=== PATIENT | female | born 1980 | race Caucasian/White ===

== ENCOUNTER 2017-08-06 07:15 | Observation (INO) | payer OTHER ==
[2017-08-06] VITALS (7 sets, daily range): BP systolic 107–128; BP diastolic 63–82
[~2017-08-06] VITALS: Ht 167.6 cm; Wt 81.6 kg
[~2017-08-06 07:15] MED LIST: BUPIVACAINE-EPI 0.25%-1:200000 MPF 30 ML VIAL. ONE; CLINDAMYCIN 900MG PREMIX 50 ML IV PRN; HYDROmorphone 2 MG/ML VIAL IV PRN; IV RINGERS,LACTATED 1000ML 1,000 ML IV SCH; LIDOCAINE 1% PF 2 ML VIAL. ID PRN; LIDOCAINE 1%/EPI 1:100,000 20 ML VIAL. ONE; MORPHINE SULFATE 4 MG/ML DISP.SYRIN. IV PRN; ONDANSETRON PF 4 MG/2 ML VIAL. IV PRN; PROCHLORPERAZINE 10 MG/2 ML VIAL. IV PRN; SURGICEL HEMOSTAT 4X8 EACH. ONE; fentaNYL PF VIAL 100 MCG/2 ML VIAL IV PRN
[2017-08-06] MEDS ORDERED: BUPR100T7 PO (08:26)
[2017-08-06 08:27] LABS: BASO % 1 % (0-3); EOS % 1 % (0-3); HEMATOCRIT 41.5 % (36.0-47.0); HEMOGLOBIN 13.8 g/dL (12.0-15.5); LYMPH % 24 % (24-48); MEAN CORPUSCULAR HEMOGLOBIN 29 pg (25-35); MEAN CORPUSCULAR HGB CONC 33 g/dL (31-37); MEAN CORPUSCULAR VOLUME 87 fL (79-100); MONO % 6 % (0-9); NEUT % 68 % (31-73); PLATELET COUNT 303 x10^3/uL (140-400); RED BLOOD COUNT 4.76 x10^6/uL (3.50-5.40); WHITE BLOOD COUNT 8.1 x10^3/uL (4.0-11.0)
[2017-08-06] MEDS ORDERED: IBUP-1027 PO (08:27)
[2017-08-06] MEDS ORDERED: DIPH25CA58 PO (08:27)
[2017-08-06] MEDS ORDERED: PROPOFOL 20 ML IV ONE (08:52)
[2017-08-06] MEDS ORDERED: LIDOCAINE 2% PF Vial for OR 5 ML VIAL. ONE (08:52)
[2017-08-06] MEDS ORDERED: fentaNYL PF VIAL 100 MCG/2 ML VIAL ONE (08:53)
[2017-08-06 09:30] LABS: NEG OBC UR NEG; POS OBC UR POS
[2017-08-06] MEDS ORDERED: DESFLURANE 61 TO 120 MINUTES IH ONE (10:49)
[2017-08-06] MEDS ORDERED: DEXAMETHASONE SOD PHOS 20 MG/5 ML VIAL. ONE (10:49)
[2017-08-06] MEDS ORDERED: ONDANSETRON PF 4 MG/2 ML VIAL. ONE (11:00)
[2017-08-06] MEDS ORDERED: GLYCOPYRROLATE 1 MG/5 ML VIAL. ONE (11:01)
[2017-08-06] MEDS ORDERED: FAMOTIDINE 20 MG/2 ML VIAL ONE (12:01)
[2017-08-06] MEDS ORDERED: KETOROLAC 30 MG/ML INJ FOR OR. INJ ONE (12:12)
--- NOTE | 2017-08-06 12:32 | PDOC ---
BRIEF OPERATIVE NOTE Pre-Op Diagnosis 1. Fibroids 2. Menorrhagia 3. Dysmenorrhea Post-Op Diagnosis SAme Procedure Performed TL[facility] via [facility] [place] Surgeon Dr. Holliday Anesthesia Type: General Blood Loss 100 ml Specimens Obtained cervix, uterus, stepan. fallopian tubes Findings fibroid uterus, fibroid in Left broad ligament; nml fallopian tubes stepan, nml ovaries stepan. Complications none TIMI HOLLIDAY Jr, MD Aug 06, 2017 12:32
[2017-08-06] MEDS ORDERED: PROCHLORPERAZINE 10 MG/2 ML VIAL. IV PRN (12:45)
[2017-08-06] MEDS ORDERED: CALCIUM CARBONATE 500 MG TAB.CHEW PO PRN (12:45)
[2017-08-06] MEDS ORDERED: SIMETHICONE 80 MG TAB.CHEW PO PRN (12:45)
[2017-08-06] MEDS ORDERED: KETOROLAC 30 MG/ML INJ. IV PRN (12:45)
[2017-08-06] MEDS ORDERED: ZOLPIDEM 5 MG TABLET. PO PRN (12:45)
[2017-08-06] MEDS ORDERED: ONDANSETRON PF 4 MG/2 ML VIAL. IV PRN (12:45)
[2017-08-06] MEDS ORDERED: DEXTROSE 50% 25 GM / 50ML DISP.SYRIN. IV PRN (12:45)
[2017-08-06] MEDS ORDERED: diphenhydrAMINE HCL 25 MG CAPSULE PO PRN (12:45)
[2017-08-06] MEDS ORDERED: 0.9 % SODIUM CHLORIDE 10 ML DISP.SYRIN. IV PRN (12:45)
[2017-08-06] MEDS ORDERED: diphenhydrAMINE 50 MG/ML VIAL IV PRN (12:45)
[2017-08-06] MEDS: fentaNYL PF VIAL 100 MCG/2 ML VIAL IV PRN ×2 (13:03→13:10)
--- NOTE | 2017-08-06 14:11 | OP ---
DATE OF SURGERY: 08/06/2017 PREOPERATIVE DIAGNOSES: 1. Fibroids. 2. Menorrhagia. 3. Dysmenorrhea. POSTOPERATIVE DIAGNOSES: 1. Fibroids. 2. Menorrhagia. 3. Dysmenorrhea. PROCEDURE PERFORMED: TLH via da [facility]ilash robot. SURGEON: Timi Holliday MD. ANESTHESIA: GETA. ESTIMATED BLOOD LOSS: 100 mL. COMPLICATIONS: None. FINDINGS: Fibroid uterus. Fibroid, left broad ligament. Normal fallopian tubes bilaterally and normal ovaries bilaterally. SUMMARY: A 37-year-old female with fibroid uterus, menorrhagia, dysmenorrhea, required hysterectomy. She was counseled on risks, benefits and expectations of TLH via da Abhilash robot and voiced clear understanding to proceed. DESCRIPTION OF PROCEDURE: The patient was taken to surgery suite and placed in dorsal lithotomy position. She was prepped with Betadine solution for vaginal prep and ChloraPrep for abdominal prep. After adequate anesthesia, a weighted speculum and curved Jane placed vaginally. Anterior lip of cervix grasped with a single tooth tenaculum. The Kim uterine manipulator was then placed. The single tooth tenaculum and weighted speculum and curved Jane were removed. Attention was now placed on abdomen. Small transverse skin incision was made just below the umbilicus with a scalpel. The Veress needle was then placed through the infraumbilical incision site. The abdomen was allowed to insufflate up to 1-1/2 liters of CO2 gas. The Veress needle was then removed. The 8 mm camera trocar was then placed. The camera was then placed. The uterus was visualized, enlarged with fibroids. There was a 2 cm fibroid in the left broad ligament. The fallopian tubes and ovaries appeared normal bilaterally. Incision was made in the left and right lower quadrant with a scalpel, in which 8 mm trocars were placed. An accessory port was placed in the left upper quadrant, at which, a scalpel was used to make an incision. A 5 mm trocar was placed. The robot was then docked in normal fashion. I then proceeded to the console. With the aid of fenestrated bipolar cautery and vessel sealer, the right round ligament was coagulated and dissected. The right fallopian tube was dissected away from the pelvic sidewall using the vessel sealer. The right round ligament was then coagulated and dissected down to and including the right uterine artery. A bladder flap was created using the vessel sealer and blunt dissection. Same process took place for the left adnexa, which also included removal of the fibroid on the left ligament. Colpotomy was performed with the spatula at the level of the vaginal ring. The cervix, uterus, bilateral fallopian tubes as well as the fibroid on the left broad ligament were removed. The vaginal cuff was reapproximated using V-Loc suture in a running fashion. Suction irrigation was utilized to verify good hemostasis. Both ureters were visualized and functioning well. The trocars were then removed under direct visualization. The abdomen was allowed to deflate as much as possible, along with mechanical manipulation. The four skin incisions were reapproximated using 4-0 Vicryl suture in subcuticular manner. 0.25% Marcaine with epinephrine was injected at each incision site. Moist vaginal packing was placed. The patient tolerated the procedure well and was taken to recovery room in stable condition. Sponge and needle count correct x 3. TIMI HOLLIDAY MD DR: ROLANDO/darrel JOB#: [id number] / [id number]
[2017-08-06] MEDS: GABAPENTIN 300 MG CAPSULE. PO SCH (22:00)
[2017-08-07] MEDS: oxyCODONE/APAP 5/325 1 TAB TABLET PO PRN ×3 (01:30→11:33)
[2017-08-07 05:50] LABS: BASO % 0 % (0-3); EOS % 0 % (0-3); HEMATOCRIT 37.4 % (36.0-47.0); HEMOGLOBIN 12.5 g/dL (12.0-15.5); LYMPH # 0.9 x10^3/uL (1.0-4.8); LYMPH % 7 % (24-48); MEAN CORPUSCULAR HEMOGLOBIN 29 pg (25-35); MEAN CORPUSCULAR HGB CONC 33 g/dL (31-37); MEAN CORPUSCULAR VOLUME 87 fL (79-100); MONO % 4 % (0-9); NEUT % 89 % (31-73); PLATELET COUNT 291 x10^3/uL (140-400); RED BLOOD COUNT 4.31 x10^6/uL (3.50-5.40); RED CELL DISTRIBUTION WIDTH 12.7 % (11.5-14.5); WHITE BLOOD COUNT 12.6 x10^3/uL (4.0-11.0)
[2017-08-07] MEDS: GABAPENTIN 300 MG CAPSULE. PO SCH ×2 (06:31→13:36)
[2017-08-07 07:04] VITALS: BP 103/59
--- NOTE | 2017-08-07 07:43 | PDOC ---
SURGICAL PROGRESS NOTE Subjective Pt. feeling well. Pain controlled. Pt. tolerating liquids. Will advance diet. Encourage ambulation. Vital Signs Vital Signs Date Time Temp Pulse Resp B/P (MAP) Pulse Ox O2 Delivery O2 Flow Rate FiO2 08/07/17 07:04 98.3 72 14 103/59 (74) 98.3 08/06/17 23:12 96 Room Air 08/06/17 12:53 10 I&O Intake and Output 08/08/17 07:00 Intake Total 1090 ml Output Total 1050 ml Balance 40 ml Intake Oral 200 ml Other 890 ml Output Urine Total 1050 ml PATIENT HAS A BORDEN: No General: Alert, Oriented X3, Cooperative HEENT: Atraumatic Lungs: Clear to auscultation Heart: Regular rate Abdomen: Normal bowel sounds, Soft, No tenderness, No masses Psych/Mental Status: Mental status NL Labs Laboratory Tests Test 08/06/17 07:40 08/06/17 08:07 08/07/17 05:00 Urine Test Negative (NEG) White Blood Count 8.1 x10^3/uL (4.0-11.0) 12.6 x10^3/uL (4.0-11.0) Red Blood Count 4.76 x10^6/uL (3.50-5.40) 4.31 x10^6/uL (3.50-5.40) Hemoglobin 13.8 g/dL (12.0-15.5) 12.5 g/dL (12.0-15.5) Hematocrit 41.5 % (36.0-47.0) 37.4 % (36.0-47.0) Mean Corpuscular Volume 87 fL (79-100) 87 fL (79-100) Mean Corpuscular Hemoglobin 29 pg (25-35) 29 pg (25-35) Mean Corpuscular Hemoglobin Concent 33 g/dL (31-37) 33 g/dL (31-37) Red Cell Distribution Width 13.0 % (11.5-14.5) 12.7 % (11.5-14.5) Platelet Count 303 x10^3/uL (140-400) 291 x10^3/uL (140-400) Neutrophils (%) (Auto) 68 % (31-73) 89 % (31-73) Lymphocytes (%) (Auto) 24 % (24-48) 7 % (24-48) Monocytes (%) (Auto) 6 % (0-9) 4 % (0-9) Eosinophils (%) (Auto) 1 % (0-3) 0 % (0-3) Basophils (%) (Auto) 1 % (0-3) 0 % (0-3) Neutrophils # (Auto) 5.5 x10^3uL (1.8-7.7) 11.2 x10^3uL (1.8-7.7) Lymphocytes # (Auto) 2.0 x10^3/uL (1.0-4.8) 0.9 x10^3/uL (1.0-4.8) Monocytes # (Auto) 0.5 x10^3/uL (0.0-1.1) 0.5 x10^3/uL (0.0-1.1) Eosinophils # (Auto) 0.1 x10^3/uL (0.0-0.7) 0.0 x10^3/uL (0.0-0.7) Basophils # (Auto) 0.0 x10^3/uL (0.0-0.2) 0.0 x10^3/uL (0.0-0.2) Laboratory Tests Test 08/06/17 08:07 08/07/17 05:00 White Blood Count 8.1 x10^3/uL (4.0-11.0) 12.6 x10^3/uL (4.0-11.0) Red Blood Count 4.76 x10^6/uL (3.50-5.40) 4.31 x10^6/uL (3.50-5.40) Hemoglobin 13.8 g/dL (12.0-15.5) 12.5 g/dL (12.0-15.5) Hematocrit 41.5 % (36.0-47.0) 37.4 % (36.0-47.0) Mean Corpuscular Volume 87 fL (79-100) 87 fL (79-100) Mean Corpuscular Hemoglobin 29 pg (25-35) 29 pg (25-35) Mean Corpuscular Hemoglobin Concent 33 g/dL (31-37) 33 g/dL (31-37) Red Cell Distribution Width 13.0 % (11.5-14.5) 12.7 % (11.5-14.5) Platelet Count 303 x10^3/uL (140-400) 291 x10^3/uL (140-400) Neutrophils (%) (Auto) 68 % (31-73) 89 % (31-73) Lymphocytes (%) (Auto) 24 % (24-48) 7 % (24-48) Monocytes (%) (Auto) 6 % (0-9) 4 % (0-9) Eosinophils (%) (Auto) 1 % (0-3) 0 % (0-3) Basophils (%) (Auto) 1 % (0-3) 0 % (0-3) Neutrophils # (Auto) 5.5 x10^3uL (1.8-7.7) 11.2 x10^3uL (1.8-7.7) Lymphocytes # (Auto) 2.0 x10^3/uL (1.0-4.8) 0.9 x10^3/uL (1.0-4.8) Monocytes # (Auto) 0.5 x10^3/uL (0.0-1.1) 0.5 x10^3/uL (0.0-1.1) Eosinophils # (Auto) 0.1 x10^3/uL (0.0-0.7) 0.0 x10^3/uL (0.0-0.7) Basophils # (Auto) 0.0 x10^3/uL (0.0-0.2) 0.0 x10^3/uL (0.0-0.2) Assessment/Plan A: POD#1 s/p TLH P: D/c home. Problems: TIMI STEWARD Jr, MD Aug 07, 2017 07:43
--- NOTE | 2017-08-07 07:44 | DISCH ---
DISCHARGE INSTRUCTIONS Condition on Discharge Condition on Discharge: Stable Activity After Discharge Activity Instructions for Disc: Activity as tolerated Lifting Instructions after Dis: No heavy lifting Driving Instructions after Dis: No driving for 2 weeks Diet after Discharge Diet after Discharge: Regular Contacting the [facility] after DC Call your doctor for: Concerns you may have Follow-Up Follow up with: Dr. Holliday in 2 week. TIMI HOLLIDAY Jr, MD Aug 07, 2017 07:44
[2017-08-07] MEDS ORDERED: DOCU-109 PO (07:45)
[2017-08-07] MEDS ORDERED: IBUP-1060 PO (07:45)
[2017-08-07] MEDS ORDERED: OXYC-323 PO (07:45)
[2017-08-07 07:48] LABS: PLT ESTIMATE ADEQUATE (ADEQUATE)
[2017-08-07] MEDS ORDERED: FLU VACC QS2017-18 (36MOS+)/PF 0.5 ML SYRINGE. VAX IM ONE (11:00)
--- NOTE | 2017-08-10 12:49 | PATHOLOGY ---
PATHOLOGY REPORT * * * * * * * * FINAL DIAGNOSIS: Uterus and attached bilateral fallopian tubes, robotic laparoscopic total hysterectomy with bilateral salpingectomy: - Adenomyosis, uterine corpus, focal. - Chronic cervicitis with focal squamous metaplasia. - Weakly proliferative endometrium. - Phlebectasia, left paratubal soft tissues. - Congestion of bilateral fallopian tubes. - Right paratubal cyst. (JPM:pit; 08/10/2017) COMMENT: There is no evidence of malignancy. (JPM:pit; 08/10/2017) REPORT ELECTRONICALLY SIGNED BY: Patrick Trejo M.D. DATE/TIME: 08/10/2017 12:48 * * * * * * * * GROSS PATHOLOGY: The specimen is received in formalin labeled "Amairani March, uterus and cervix and bilateral tubes". Received is a 65 g, 6.8 x 4.4 x 3.4 cm uterus with attached cervix and bilateral fallopian tubes. The uterine serosa is purple-aranda, smooth, and congested. There is a cystic structure adjacent to the left fallopian tube within the attached soft tissue. Sectioning reveals a thin-walled cyst containing brown-dark red indurated material. The gaping 1.7 cm cervical os is surrounded by pink, smooth, and glistening ectocervical mucosa. The uterus is oriented using the peritoneal reflection. The uterus is bivalved to reveal a aranda and granular endocervical canal measuring 2.1 cm in length. The endometrial cavity is triangular measuring 3.1 cm in length by 1.8 cm in width. The endometrium is aranda-pink and hemorrhagic in appearance and measures 0.1 cm in thickness. Serial sectioning reveals a pink-aranda and trabeculated myometrium measuring 1.6 cm in thickness. No additional masses or lesions are identified. The right fimbriated fallopian tube measures 7.2 cm in length by 1.0 cm in diameter. The serosal surface is inked black. Sectioning reveals a purple-aranda and central lumen. There is a single paratubal cyst containing clear fluid measuring up to 0.8 cm in greatest dimension. No additional masses or lesions are identified. The left fimbriated fallopian tube measures 7.5 cm in length by 1.1 cm in diameter. Sectioning reveals a purple-aranda and central lumen. The specimen is submitted representatively as follows: A1: Anterior cervix A2: Posterior cervix A3: Anterior endomyometrium A4: Posterior endomyometrium A5: Right fallopian tube and cyst A6: Left fallopian tube A7: Left paratubal cyst (SDY; 08/07/2017) INITIAL CPT CODE(S): A; 91640 Professional services performed by [facility] [place] [address] Technical services performed by [facility] at [address] [place] [address], [address], [place] [address]. SPECIMEN(S) RECEIVED: A.Uterus and cervix, bilateral fallopian tubes CLINICAL HISTORY: Menorrhagia, dysmenorrhea PATIENT: AMAIRANI MARCH Abhijit /AGE: 604/08/1980 (Age: 37) PATIENT #: [id number] ALT CASE #: SPECIMEN COLLECTION DATE: 08/06/2017 SPECIMEN RECEIVED DATE: 08/06/2017 [facility] - [address] [place] [address] - PHONE: [phone] * * * END OF REPORT * * *
== END 2017-08-07 15:51 | disposition home or self-care (01) ==
LOC: SURG 07:15 → 3 NORTH 12:32
PROVIDERS: ADMIT Obstetrics & Gynecology; ATTEND Obstetrics & Gynecology
DX: N92.1 Excessive and frequent menstruation with irregular cycle (principal); D25.9 Leiomyoma of uterus, unspecified; N94.6 Dysmenorrhea, unspecified; Z23 Encounter for immunization
CPT/HCPCS: 36415; 58571; 81025; 85007; 85025; 86850; 86900; 86901; 88307; 90471; 90686; A4215; G0378; G0379; J0780; J1100; J1885; J2405; J2704; J3010; J3490; J7030; J7120; S0028; J2001